=== PATIENT | female | born 1990 | race African-American/Black ===

== ENCOUNTER 2021-03-10 15:10 | Outpatient (CLI) | payer OTHER ==
[2021-03-11 12:02] LABS: SARS-CoV-2 PCR by NAA Not Detected (NotDetected)
== END 2021-03-10 15:11 | disposition home or self-care (01) ==
LOC: CSHLAB 15:10 → EDBD 15:10 → CSHLAB 15:11
PROVIDERS: ATTEND Obstetrics & Gynecology
DX: Z20.822 Contact with and (suspected) exposure to COVID-19 (principal)
CPT/HCPCS: U0003; U0005

== ENCOUNTER 2021-03-17 04:06 | Observation (INO) | payer OTHER ==
[2021-03-17 04:29] VITALS: BMI 27.1
[2021-03-17] MEDS ORDERED: Ibuprofen 800 MG TAB PO PRN (04:54)
[2021-03-17] MEDS ORDERED: Butorphanol Tartrate 1 MG/ML VIAL SLOW IVP PRN (04:54)
[2021-03-17] MEDS ORDERED: Ondansetron PF 4 MG/2 ML Vial IVP PRN (04:54)
[2021-03-17] MEDS ORDERED: hydrALAZINE 20 MG/ML VIAL SLOW IVP PRN (04:54)
[2021-03-17] MEDS ORDERED: Promethazine HCl 25 MG/ML VIAL IM PRN (04:54)
[2021-03-17] MEDS ORDERED: Lidocaine 1% (PF) 30 ML VIAL SC PRN (04:54)
[2021-03-17] MEDS ORDERED: HYDROcodone/Acetaminophen 5/325 mg Tablet PO PRN (04:54)
[2021-03-17] MEDS ORDERED: NS w/ Oxytocin 30 units 500 ML IV SCH (05:00)
[2021-03-17] MEDS ORDERED: Lactated Ringer's 1,000 ML IV SCH ×2 (05:00)
[2021-03-17 05:55] LABS: Hemoglobin 11.7 g/dL (12.0-15.5); Mean Corpuscular HGB CONC 32.3 g/dL (32.0-36.0); Mean Corpuscular Hemoglobin 26.4 pg (27.0-33.0); Mean Corpuscular Volume 81.7 fl (81.6-98.3); Mean Platelet Volume 9.6 fl (7.4-10.4); Platelet Count 321 10x3/uL (150-450); RBC Distribution Width 14.5 % (11.5-14.5); Red Blood Cell (RBC) Count 4.43 10x6/uL (3.90-5.03); White Blood Cell (WBC) Count 6.6 10x3/uL (3.5-10.5)
[2021-03-17 06:40] LABS: Syphilis Antibody Nonreactive (Nonreactive); Syphilis Antibody Index 0.06 S/CO (<1.00 Non-Reactive)
[2021-03-17 06:41] LABS: Hep B Surf Ag Non-Reactive S/CO (NonReactive)
[2021-03-17 06:43] LABS: HBSAg Index 0.23 S/CO (0-0.99)
[2021-03-17 07:05] LABS: SARS-CoV-2 NAA Rapid Test Not Detected (NotDetected)
[2021-03-17 07:22] LABS: HIV (1/2) Antibody/Antigen Non-Reactive (NonReactive); HIV 1/2 INDEX 0.15 S/CO (<1.00)
== END 2021-03-17 14:04 | disposition home health service (06) ==
LOC: CSHLD/OP 04:06 → INTOOBSV 05:40 → CSHLD 05:40
PROVIDERS: ADMIT Obstetrics & Gynecology; ATTEND Obstetrics & Gynecology
DX: O47.1 False labor at or after 37 completed weeks of gestation (principal); O48.0 Post-term pregnancy; Z3A.40 40 weeks gestation of pregnancy; Z20.822 Contact with and (suspected) exposure to COVID-19
CPT/HCPCS: 36415; 85027; 86780; 86850; 86900; 86901; 87340; 87389; U0002

== ENCOUNTER 2021-03-17 17:17 | Inpatient (IN) | payer OTHER ==
[2021-03-17] MEDS ORDERED: Butorphanol Tartrate 1 MG/ML VIAL SLOW IVP PRN (17:43)
[2021-03-17] MEDS ORDERED: HYDROcodone/Acetaminophen 5/325 mg Tablet PO PRN ×2 (17:43)
[2021-03-17] MEDS ORDERED: hydrALAZINE 20 MG/ML VIAL SLOW IVP PRN (17:43)
[2021-03-17] MEDS ORDERED: Ibuprofen 800 MG TAB PO PRN (17:43)
[2021-03-17] MEDS ORDERED: Lidocaine 1% (PF) 30 ML VIAL SC PRN (17:43)
[2021-03-17] MEDS ORDERED: Ondansetron PF 4 MG/2 ML Vial IVP PRN ×2 (17:43→20:14)
[2021-03-17] MEDS ORDERED: Promethazine HCl 25 MG/ML VIAL IM PRN ×2 (17:43→20:14)
[2021-03-17] MEDS ORDERED: NS w/ Oxytocin 30 units 500 ML IV SCH ×2 (17:45)
[2021-03-17] MEDS ORDERED: Lactated Ringer's 1,000 ML IV SCH ×2 (17:45)
[2021-03-17 18:33] LABS: Hemoglobin 10.9 g/dL (12.0-15.5); Mean Corpuscular HGB CONC 32.7 g/dL (32.0-36.0); Mean Corpuscular Hemoglobin 26.7 pg (27.0-33.0); Mean Corpuscular Volume 81.6 fl (81.6-98.3); Mean Platelet Volume 9.5 fl (7.4-10.4); Platelet Count 311 10x3/uL (150-450); RBC Distribution Width 14.4 % (11.5-14.5); Red Blood Cell (RBC) Count 4.08 10x6/uL (3.90-5.03); White Blood Cell (WBC) Count 6.5 10x3/uL (3.5-10.5)
[2021-03-17 18:59] VITALS: BMI 27.1
[2021-03-17 19:03] LABS: Hep B Surf Ag Non-Reactive S/CO (NonReactive); Syphilis Antibody Nonreactive (Nonreactive); Syphilis Antibody Index 0.04 S/CO (<1.00 Non-Reactive)
[2021-03-17] MEDS ORDERED: Fentanyl 2 mcg/Bup 0.1% Cadd 100 ML ONE (19:08)
[2021-03-17 19:12] LABS: HBSAg Index 0.16 S/CO (0-0.99)
[2021-03-17] MEDS ORDERED: Hydrocerin (Eucerin) Cream 120 gm Jar TOP PRN (20:14)
[2021-03-17] MEDS ORDERED: Naloxone HCl 0.4 mg/ml Vial IVP PRN ×2 (20:14)
[2021-03-17] MEDS ORDERED: Lactated Ringer's 500 ML IV PRN (20:14)
[2021-03-17] MEDS ORDERED: diphenhydrAMINE 50 MG/ML VIAL IVP PRN (20:14)
[2021-03-17] MEDS ORDERED: Acetaminophen 325 MG TAB PO PRN (20:14)
[2021-03-17] MEDS ORDERED: ePHEDrine Sulfate 50 MG/10 ML VIAL SLOW IVP PRN (20:14)
[2021-03-17] MEDS ORDERED: Fentanyl 2 mcg/Bupivacaine 0.1% Cassette 100 ML EPIDURAL SCH (20:15)
[2021-03-17] MEDS ORDERED: Communication Order-Pharmacy FS SCH (20:15)
[2021-03-18] MEDS ORDERED: Preparation H Ointment 28 GM TUBE PR PRN (01:43)
[2021-03-18] MEDS ORDERED: diphenhydrAMINE 25 MG CAP PO PRN (01:43)
[2021-03-18] MEDS ORDERED: Milk Of Magnesia 30 ML UDCUP PO PRN (01:43)
[2021-03-18] MEDS ORDERED: hydrALAZINE 20 MG/ML VIAL SLOW IVP PRN (01:43)
[2021-03-18] MEDS ORDERED: Bisacodyl 10 MG SUPP PR PRN (01:43)
[2021-03-18] MEDS ORDERED: Ondansetron PF 4 MG/2 ML Vial IVP PRN (01:43)
[2021-03-18] MEDS ORDERED: Boostrix 0.5 ML (Tdap) VIAL IM ONE (01:43)
[2021-03-18] MEDS ORDERED: Zolpidem Tartrate 5 MG TAB PO PRN (01:43)
[2021-03-18] MEDS ORDERED: Lanolin Ointment 7 GM TUBE TOP PRN (01:43)
[2021-03-18] MEDS ORDERED: HYDROcodone/Acetaminophen 5/325 mg Tablet PO PRN ×2 (01:43)
[2021-03-18] MEDS ORDERED: Benzocaine-Menthol 82.5 ML CAN TOP PRN (01:43)
[2021-03-18] MEDS: Ibuprofen 800 MG TAB PO SCH ×2 (09:00→17:01)
[2021-03-18] MEDS: Prenatal Vitamin 1 TAB PO SCH (09:00)
[2021-03-18] MEDS: Docusate Calcium (SURFAK) 240 MG CAP PO SCH ×2 (09:00→20:27)
[2021-03-18] MEDS: Ferrous Sulfate 325 MG TAB PO SCH ×2 (09:00→16:59)
[2021-03-19] MEDS: Ibuprofen 800 MG TAB PO SCH ×2 (02:28→09:50)
[2021-03-19 08:37] VITALS: BP 112/59; TEMP 97.9
[2021-03-19] MEDS: Ferrous Sulfate 325 MG TAB PO SCH (09:48)
[2021-03-19] MEDS: Prenatal Vitamin 1 TAB PO SCH (09:50)
[2021-03-19] MEDS: Docusate Calcium (SURFAK) 240 MG CAP PO SCH (09:50)
== END 2021-03-19 14:21 | disposition home or self-care (01) | DRG 807 ==
LOC: CSHLD/OP 17:17 → CSHLD 18:59 → CSHPP 03-18 01:15
PROVIDERS: ADMIT Obstetrics & Gynecology; ATTEND Obstetrics & Gynecology
PROC: 10E0XZZ Delivery of Products of Conception, External Approach (ICD-10-PCS; principal; 2021-03-17)
DX: O48.0 Post-term pregnancy (principal); Z37.0 Single live birth; Z3A.40 40 weeks gestation of pregnancy
CPT/HCPCS: 36415; 51702; 85027; 86780; 86850; 86900; 86901; 87340; 87389; 99285; J2590; U0002